=== PATIENT | male | born 1955 | race Asian ===

== ENCOUNTER 2019-04-14 20:18 | Inpatient (IN) | payer OTHER ==
[2019-04-14] MEDS ORDERED: Albuterol 2.5 MG/3 ML NEB.SOL* (0.083%) INH ONE (20:19)
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
[2019-04-14] MEDS ORDERED: Acetaminophen TAB* 325 MG PO ONE (20:50)
[2019-04-14 21:11] LABS: ABS Basophils 0.1 10^3/ul (0-0.2); ABS Eosinophils 0.3 10^3/ul (0-0.6); ABS Lymphocytes 1.8 10^3/ul (1.0-4.8); ABS Monocytes 1.2 10^3/ul (0-0.8); ABS Neutrophils 14.5 10^3/ul (1.5-7.7); Eosinophil % 1.6 %; Hematocrit 42 % (42-52); Hemoglobin 13.9 g/dL (14.0-18.0); Lymphocyte % 9.9 %; Mean Corpuscular HGB Conc 34 g/dL (31-36); Mean Corpuscular Hemoglobin 32 pg (27-31); Mean Corpuscular Volume 95 fL (80-94); Mean Platelet Volume 9.5 fL (7.4-10.4); Platelet Count 250 10^3/uL (150-450); Red Blood Count 4.36 10^6 /uL (4.18-5.48); Red Cell Distribution Width 13 % (10-15); White Blood Count 17.8 10^3/uL (3.5-10.8)
[2019-04-14 21:28] LABS: Albumin 4.1 g/dL (3.2-5.2); Albumin/Globulin Ratio 1.4 (1-3); BUN/Creatinine Ratio 15.5 (8-20); Calcium 8.9 mg/dL (8.6-10.3); EGFR Non-African American 72.7 (>60); Globulin 2.9 g/dL (2-4); Potassium 3.8 mmol/L (3.5-5.0); Total Bilirubin 0.4 mg/dL (0.2-1.0)
[2019-04-14 21:30] LABS: Troponin I 0.01 ng/mL (<0.04)
[2019-04-14] MEDS ORDERED: Piperacillin/Tazobac ADVAN(*) 3.375 GM in NS 0.9% 100 ML* 100 ML IVPB ONE (21:50)
[2019-04-14] MEDS ORDERED: methylPREDNISolone 125 MG* 2 ML VIAL IV ONE (21:50)
[2019-04-14] MEDS ORDERED: Ketorolac INJ* 30 MG/ML 1 ML VIAL IV PUSH ONE (22:14)
[2019-04-14] MEDS ORDERED: Albuterol/Ipratropium NEB.SOL* Albuterol 2.5 MG/Ipratropium 0.5 MG 3 ML INH ONE ×2 (22:34→23:31)
[2019-04-14] MEDS ORDERED: NS 0.9% 1000 ML** 1,000 ML IV ONE (22:34)
[2019-04-15] MEDS ORDERED: Fosphenytoin(*) 100 MG PE/2 ML VIAL IVPB ONE (01:30)
[2019-04-15] MEDS ORDERED: Piperacillin/Tazobac ADVAN(*) 3.375 GM in NS 0.9% 100 ML* 100 ML IVPB ONE (01:31)
[2019-04-15] MEDS ORDERED: Acetaminophen TAB* 325 MG PO PRN (01:32)
[2019-04-15] MEDS ORDERED: Al Hydrox/Mg Hydrox/Simet LIQ* 30 ML UDC PO PRN (01:32)
[2019-04-15] MEDS ORDERED: Ibuprofen TAB* 800 MG PO PRN (01:34)
[2019-04-15] MEDS ORDERED: Albuterol/Ipratropium NEB.SOL* Albuterol 2.5 MG/Ipratropium 0.5 MG 3 ML INH SCH (02:00)
[2019-04-15] MEDS ORDERED: Zosyn per Pharmacy* NOTE FOLLOW UP SCH (02:00)
[2019-04-15] MEDS ORDERED: Albuterol/Ipratropium NEB.SOL* Albuterol 2.5 MG/Ipratropium 0.5 MG 3 ML INH PRN (02:28)
[2019-04-15] MEDS: ZOSYN 3.375 GM Q8H per EXTENDED INFUSION IVPB SCH ×6 (03:23→18:16)
[2019-04-15] MEDS: NS 0.9% 1000 ML** 1,000 ML IV SCH ×2 (03:25→15:11)
[2019-04-15] MEDS ORDERED: FOSPHENYTOIN IVPB ONE ×2 (03:45)
[2019-04-15] MEDS ORDERED: [UNRECOGNIZED DRUG - OTHER] IVPB ONE ×2 (03:45)
[2019-04-15] MEDS: Heparin VIAL(*) 5000 UNITS/ML VIAL (FIVE THOUSAND) SUBCUT SCH ×3 (04:19→20:42)
[2019-04-15] MEDS: Phenytoin CAP(*) 100 MG CAP.ER PO SCH (04:19)
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
[2019-04-15] MEDS: Gabapentin CAP(*) 300 MG PO SCH ×3 (09:17→20:43)
[2019-04-15] MEDS: levETIRAcetam TAB* 500 MG PO SCH (09:17)
[2019-04-15] MEDS: Docusate CAP* 100 MG PO SCH ×2 (09:18→20:44)
[2019-04-15 10:56] LABS: ABS Lymphocytes 2.4 10^3/ul (1.0-4.8); ABS Monocytes 0.8 10^3/ul (0-0.8); ABS Neutrophils 13.8 10^3/ul (1.5-7.7); Eosinophil % 0.1 %; Hematocrit 39 % (42-52); Hemoglobin 13.3 g/dL (14.0-18.0); Lymphocyte % 13.9 %; Mean Corpuscular HGB Conc 34 g/dL (31-36); Mean Corpuscular Hemoglobin 32 pg (27-31); Mean Corpuscular Volume 95 fL (80-94); Mean Platelet Volume 9.5 fL (7.4-10.4); Platelet Count 238 10^3/uL (150-450); Red Blood Count 4.14 10^6 /uL (4.18-5.48); Red Cell Distribution Width 13 % (10-15)
[2019-04-15 11:04] LABS: BUN/Creatinine Ratio 15.4 (8-20); Calcium 8.7 mg/dL (8.6-10.3); EGFR Non-African American 71.9 (>60); Potassium 3.8 mmol/L (3.5-5.0)
[2019-04-15] MEDS: Ketorolac INJ* 30 MG/ML 1 ML VIAL IV PUSH SCH ×2 (13:28→20:40)
[2019-04-15] MEDS: Lidocaine PATCH 5%* 1 PATCH TRANSDERM SCH (13:28)
[2019-04-15 15:30] LABS: Urine Appearance Clear; Urine Bilirubin Negative (Negative); Urine Blood Negative (Negative); Urine Color Yellow; Urine Glucose Negative (Negative); Urine Ketones Negative (Negative); Urine Nitrite Negative (Negative); Urine Protein Negative (Negative); Urine Specific Gravity 1.011 (1.010-1.030); Urine Urobilinogen Negative (Negative)
[2019-04-15] MEDS ORDERED: levETIRAcetam TAB* 500 MG PO SCH (21:00)
[2019-04-15] MEDS ORDERED: Lidocaine Patch REMOVE* 1 NOTE MISC SCH (21:00)
[2019-04-16] MEDS: NS 0.9% 1000 ML** 1,000 ML IV SCH (01:17)
[2019-04-16] MEDS: Ketorolac INJ* 30 MG/ML 1 ML VIAL IV PUSH SCH (01:17)
[2019-04-16] MEDS ORDERED: traZODone TAB* 50 MG TAB PO PRN (01:41)
[2019-04-16] MEDS ORDERED: traZODone TAB* 50 MG TAB ONE (01:44)
[2019-04-16] MEDS: ZOSYN 3.375 GM Q8H per EXTENDED INFUSION IVPB SCH ×2 (02:35)
[2019-04-16] MEDS ORDERED: Melatonin 3 MG TAB PO PRN (03:26)
[2019-04-16] MEDS: Heparin VIAL(*) 5000 UNITS/ML VIAL (FIVE THOUSAND) SUBCUT SCH (05:30)
[2019-04-16 07:31] LABS: ABS Eosinophils 0.3 10^3/ul (0-0.6); ABS Lymphocytes 2.1 10^3/ul (1.0-4.8); ABS Monocytes 0.8 10^3/ul (0-0.8); Hematocrit 40 % (42-52); Hemoglobin 13.7 g/dL (14.0-18.0); Mean Corpuscular HGB Conc 34 g/dL (31-36); Mean Corpuscular Hemoglobin 33 pg (27-31); Mean Corpuscular Volume 97 fL (80-94); Mean Platelet Volume 9.6 fL (7.4-10.4); Nucleated Red Blood Cells % 0.1; Platelet Count 231 10^3/uL (150-450); Red Blood Count 4.16 10^6 /uL (4.18-5.48); Red Cell Distribution Width 13 % (10-15); White Blood Count 10.3 10^3/uL (3.5-10.8)
[2019-04-16 07:41] LABS: BUN/Creatinine Ratio 13.5 (8-20); Calcium 8.1 mg/dL (8.6-10.3); EGFR African American 95.4 (>60); EGFR Non-African American 78.9 (>60); Potassium 4.2 mmol/L (3.5-5.0)
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
[2019-04-16] MEDS: levETIRAcetam TAB* 500 MG PO SCH (08:14)
[2019-04-16] MEDS: Docusate CAP* 100 MG PO SCH (08:14)
[2019-04-16] MEDS: Gabapentin CAP(*) 300 MG PO SCH (08:14)
[2019-04-16] MEDS: Lidocaine PATCH 5%* 1 PATCH TRANSDERM SCH (08:14)
[2019-04-16] MEDS: Phenytoin CAP(*) 100 MG CAP.ER PO SCH (09:56)
[2019-04-16] MEDS ORDERED: Ketorolac INJ* 30 MG/ML 1 ML VIAL IV PUSH ONE (10:01)
[2019-04-16] MEDS ORDERED: Amoxicillin/Clavulanate TAB* 875 MG PO ONE (10:02)
[2019-04-16 10:15] VITALS: BP 124/75
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
[2019-04-17] MEDS ORDERED: Phenytoin CAP(*) 100 MG CAP.ER PO SCH (09:00)
== END 2019-04-16 11:45 | disposition home or self-care (01) | DRG 137 ==
LOC: ED 20:18 → MED 04-15 01:32 → OBSVTOIN 04-15 07:20
PROVIDERS: ADMIT Internal Medicine; ATTEND Internal Medicine
DX: J69.0 Pneumonitis due to inhalation of food and vomit (principal); G40.409 Other generalized epilepsy and epileptic syndromes, not intractable, without status epilepticus; S20.212A Contusion of left front wall of thorax, initial encounter; W06.XXXA Fall from bed, initial encounter; H54.40 Blindness, one eye, unspecified eye; F17.210 Nicotine dependence, cigarettes, uncomplicated; G89.29 Other chronic pain; Y92.003 Bedroom of unspecified non-institutional (private) residence as the place of occurrence of the external cause; Z87.820 Personal history of traumatic brain injury; Z79.1 Long term (current) use of non-steroidal anti-inflammatories (NSAID); Z79.899 Other long term (current) drug therapy; Z82.3 Family history of stroke; Z82.49 Family history of ischemic heart disease and other diseases of the circulatory system
CPT/HCPCS: 36415; 70450; 71046; 80048; 80053; 80177; 80185; 81003; 82803; 83605; 83880; 84484; 85025; 85379; 85610; 87040; 87070; 87205; 93005; 96365; 96375; 99285; A9270-GY; J1644; J1885; J2543; J2930